=== PATIENT | female | born 1950 | race American Indian/Alaskan Native ===

== ENCOUNTER 2016-12-29 11:29 | Outpatient (CLI) | payer MEDICARE ==
[2016-12-29 11:53] LABS: Blood Urea Nitrogen 8 mg/dL (7-17)
--- NOTE | 2016-12-29 14:48 | Cat Scan Report ---
CT of the abdomen and pelvis with IV and oral contrast. History: Epigastric and left lower quadrant pain. Findings: The liver, spleen, pancreas, and gallbladder are normal. The left kidney is unremarkable. There is a small cyst in the lower pole of the right kidney which is otherwise unremarkable. The adrenal glands are normal. There are no pelvic masses or abnormal fluid collections. The appendix is normal. There are no mesenteric inflammatory changes. Impression: No significant findings. A small right renal cyst is noted.
== END 2016-12-29 11:30 | disposition home or self-care (01) ==
LOC: CT 11:29
PROVIDERS: ATTEND Internal Medicine Gastroenterology
DX: N28.1 Cyst of kidney, acquired (principal)
CPT/HCPCS: 36415; 74177; 82565; 84520; Q9967

== ENCOUNTER 2017-06-21 08:24 | Outpatient (CLI) | payer MEDICARE ==
--- NOTE | 2017-06-21 09:03 | Mammography Report ---
BILATERAL MAMMOGRAM: FINDINGS: The breast tissue is heterogeneously dense, which could obscure detection of small masses (approximately 50%-75% glandular). No mass, distortion, suspicious calcification, or skin change is seen. No significant change compared to prior examination of March 2016. CAD was utilized. IMPRESSION: Negative mammogram. There is no mammographic evidence of malignancy. RECOMMENDATION: Follow-up per ACS guidelines. BI-RADS CATEGORY: 1 = Negative ACR BI-RADS MAMMOGRAPHIC CODES: 0 = Needs additional imaging evaluation; 1 = Negative; 2 = Benign; 3 = Probably benign; 4 = Suspicious; 5 = Malignant; 6 = Known biopsy-proven malignancy COMMENT: 1. Dense breast tissue, i.e., adenosis, fibrocystic changes, etc., may obscure an underlying neoplasm. 2. Approximately 10% of cancers are not detected with mammography. 3. A negative mammography report should not delay biopsy if a clinically suspicious mass is present. COMMENT: Patient follow-up letters are generated in [facility].
== END 2017-06-21 08:25 | disposition home or self-care (01) ==
LOC: MAMMO 08:24
PROVIDERS: ATTEND Obstetrics & Gynecology
DX: Z12.31 Encounter for screening mammogram for malignant neoplasm of breast (principal)
CPT/HCPCS: 77067; G0202